=== PATIENT | female | born 1970 | race Caucasian/White ===

== ENCOUNTER → 2017-10-30 | Outpatient (CLI) | payer BC ==
[2017-10-30 16:37] LABS: Basophils % (A) 0 %; Eosinophils % (A) 0 %; HCT 36.5 % (34.0-46.0); HGB 12.7 gm/dL (11.4-16.0); Lymphocytes # (A) 1.6 k/uL (1.0-4.8); Lymphocytes % (A) 33 %; MCH 31.2 pg (25.0-35.0); MCHC 34.7 g/dL (31.0-37.0); MCV 89.8 fL (80.0-100.0); Mean Platelet Volume 7.3; Monocytes # (A) 0.4 k/uL (0-1.0); Monocytes % (A) 7 %; Neutrophils # (A) 2.7 k/uL (1.3-7.7); Neutrophils % (A) 56 %; Platelet Count 195 k/uL (150-450); RBC 4.07 m/uL (3.80-5.40); RDW 12.1 % (11.5-15.5); WBC 4.8 k/uL (3.8-10.6)
[2017-10-30 16:57] LABS: Potassium 3.9 mmol/L (3.5-5.1)
== END | disposition home or self-care (01) ==
LOC: LABPAT 15:45
PROVIDERS: ATTEND Obstetrics & Gynecology
DX: Z01.812 Encounter for preprocedural laboratory examination (principal); N94.6 Dysmenorrhea, unspecified
CPT/HCPCS: 36415; 80051; 82565; 82947; 84520; 85025; 87086

== ENCOUNTER 2017-11-04 06:17 | Day surgery (SDC) | payer BC ==
[2017-10-23 12:46] VITALS: BMI 29.2
[~2017-11-04 06:17] MED LIST: DEXAMETHASONE SOD PHOSPHATE 10 MG/ML 1 ML VIAL IV ONE; MIDAZOLAM 2 MG/2 ML VIAL IV PRN; MORPHINE SULFATE 4MG/4ML SYRG IV PRN; ceFAZolin IN SWFI 2 GM/20 ML SYRINGE IVP ONE
[2017-11-04] MEDS ORDERED: LIDOCAINE 1% 20 ML VIAL (10MG/ML) FOR IV START INTRADERMA ONE (07:01)
[2017-11-04] MEDS: LACTATED RINGERS 1,000 ML IV SCH (07:01)
[2017-11-04] MEDS: ONDANSETRON 4 MG/2 ML VIAL IVP ONE ×2 (07:08→09:41)
[2017-11-04] MEDS ORDERED: SCOPOLAMINE 1.5MG/72HR PATCH TRANSDERM ONE (07:08)
[2017-11-04] MEDS ORDERED: LIDOCAINE 1% INJ 10MG/ML (20 ML MDV) ONE (07:57)
[2017-11-04] MEDS ORDERED: MIDAZOLAM 2 MG/2 ML VIAL ONE (07:57)
[2017-11-04] MEDS ORDERED: PROPOFOL 10 MG/ML 20 ML VIAL IV ONE (07:57)
[2017-11-04] MEDS ORDERED: fentaNYL (PF) 50 MCG/ML 2 ML AMP ONE (07:57)
[2017-11-04] MEDS ORDERED: VASOPRESSIN 20 UNIT/ML 1 ML VIAL SQ ONE (08:15)
[2017-11-04] MEDS ORDERED: LACTATED RINGERS 1,000 ML IV ONE (08:41)
[2017-11-04] MEDS ORDERED: BACITRACIN 500 UNIT/GM OINT 28.4 GM TUBE TOPICAL ONE (09:13)
[2017-11-04] MEDS ORDERED: ONDANSETRON 4 MG/2 ML VIAL IVP PRN ×2 (09:31→10:23)
[2017-11-04] MEDS ORDERED: KETOROLAC 30 MG/ML 1 ML VIAL IVP PRN (09:31)
[2017-11-04] MEDS ORDERED: IBUPROFEN 600 MG TAB PO PRN (09:31)
[2017-11-04] MEDS ORDERED: SIMETHICONE 80 MG CHEWABLE PO PRN (09:31)
[2017-11-04] MEDS ORDERED: diphenhydrAMINE 50 MG/ML 1 ML VIAL IVP PRN (09:31)
[2017-11-04] MEDS ORDERED: METOCLOPRAMIDE 5 MG/ML 2 ML VIAL IVP PRN (09:31)
[2017-11-04] MEDS ORDERED: ZOLPIDEM 5 MG TAB PO PRN (09:31)
[2017-11-04] MEDS ORDERED: Acetaminophen-Codeine 300-30mg TAB PO PRN (09:31)
--- NOTE | 2017-11-04 09:31 | P.OP ---
Date of Procedure: 11/04/17 Preoperative Diagnosis: Severe dysmenorrhea, adenomyosis Postoperative Diagnosis: Fibroid uterus, normal-appearing ovaries bilaterally Procedure(s) Performed: Vaginal hysterectomy Anesthesia: LADIA Surgeon: Nicolasa Lorenzana Senior [employer] Applications Developer #1: Rajiv Tinajero Estimated Blood Loss (ml): 50 IV fluids (ml): 1,000 Urine output (ml): 300 Pathology: other (Cervix and uterus) Condition: stable Disposition: PACU Operative Findings: Normal-appearing ovaries bilaterally Description of Procedure: Patient is brought to the operating suite where a general anesthetic is administered without difficulty per anesthesia staff. Antibiotics are given. The appropriate timeout was performed to assure proper patient and procedural identification. Urine hCG is negative. The cervix, vagina, perineum and periurethral areas are all prepped and draped in the usual sterile fashion. Bladder is drained for approximately 300 mL of clear yellow urine. Weighted speculum was placed into the vagina and the anterior lip of the cervix is grasped with a double-tooth tenaculum. The cervix is injected circumferentially with a dilute Pitressin solution. A [place] blade scalpel is used and the mucosa is incised circumferentially with a V positioning in the back. A sponge is used to sweep the overlying mucosa from the underlying fascial plane. The peritoneum is entered at 6:00 and suture tied with 2-0 Vicryl, the large billed speculum is then placed into the vagina. At all times care is taken to keep the mucosa swept well from the Bladder and ureteral regions. Nelson clamps are used in the uterosacral ligaments are clamped cut and held laterally with a hemostat. Skeletonization is performed and the uterine vasculature is identified, clamped cut and suture ligated. 2 additional pedicles are taken superior to the vessels. The anterior peritoneum was then entered with Metzenbaum scissors. Nelson clamps are used across the final pedicles and the specimen is removed and sent to pathology for evaluation. The pedicles are tied with 0 Vicryl suture, flashed, and retied for excellent hemostasis. A sponge stick is then used and the ovaries are identified, noted to be within normal limits and hemostatically intact. They are therefore left in situ per the patient's wishes. All pedicles are clean and dry. The speculum is changed to the shallow billed speculum and the 2-0 Vicryl suture is brought around in a pursestring fashion to close the peritoneum. The previously held uterosacral cardinal ligaments are brought across to incorporate the opposite ligament and vaginal mucosa. Vagina is then closed with several additional [id number] sutures of 0 Vicryl. Hemostasis is excellent. Lock is placed and bladder is noted to be draining clear urine. All sponge needle and enhancement counts are correct. Vagina is packed with one -inch iodophor gauze with basic tracing. Patient is brought back to recovery room in very good condition with stable vital signs including blood pressure 109 /62, pulse 64.
[2017-11-04] MEDS ORDERED: PROMETHAZINE INJ 25 MG/ML 1 ML VIAL IVPB ONE (09:49)
[2017-11-04] MEDS ORDERED: NALOXONE 0.4 MG/ML 1 ML VIAL IV PRN (10:23)
[2017-11-04 16:43] VITALS: PULSE 68
[2017-11-04 22:50] VITALS: RESP 18
[2017-11-05] MEDS: LACTATED RINGERS 1,000 ML IV SCH (06:07)
--- NOTE | 2017-11-05 06:36 | P.PN ---
Progress Note - Text Progress Note Date: 11/05/17 46 year-old female status post vaginal hysterectomy post op day #1. Patient received spinal Duramorph. Patient was seen this morning laying in bed, comfortable, no complaints from overnight, no headache, no itching, no nausea or vomiting. Adequate pain control. VAS score of 3/10. Assessment and plan:patient will be kept on the floor for a couple of days before she gets discharged home.
--- NOTE | 2017-11-05 07:50 | P.DS ---
Providers Date of admission: 11/04/17 Expected date of discharge: 11/05/17 Attending physician: Nicolasa Lorenzana Primary care physician: Stated None Hospital Course: This is a 46-year-old white female who presented with a complaint of cyclic severe menstrual cramping. She is status post NovaSure ablation, ultrasound suggested the presence of adenomyosis. After thorough consultation, patient elected to proceed with vaginal hysterectomy. Please see admitting history and physical for details. Patient was admitted and underwent vaginal hysterectomy under my care yesterday. She did well intraoperatively, ovaries appeared normal to inspection and therefore were left in situ per her wishes. Lock was draining clear urine, vagina was packed, please see dictated operative note for details. This morning the vaginal packing and Lock catheter both been removed. Patient is voiding, ambulating, passing flatus without difficulty. Vital signs are stable and she is afebrile. There is only scant vaginal drainage. Pain is well controlled. She is tolerating regular food. Patient is being discharged home today in very good condition. She will follow- up in the office with me in 2 weeks. I have reminded her no intercourse, tampons or douching. She will use [id number] Advil or Motrin products as needed for pain. I have asked her to call me with any fevers shakes or chills, foul smelling or bloody vaginal drainage, with any pain not alleviated by over- the-counter medications, with any difficulties or concerns. No heavy lifting, no driving for 2 weeks. Patient Condition at Discharge: Good Plan - Discharge Summary Discharge Rx Participant: Yes New Discharge Prescriptions: No Action Cholecalciferol [Vitamin D3] 5,000 unit PO DAILY Thyroid,Pork [Simpson Thyroid] 60 mg PO 1800 Thyroid,Pork [Simpson Thyroid] 90 mg PO QAM Vitamin B Complex 1 each PO DAILY Biotin 5 mg PO DAILY Discharge Medication List Biotin 5 mg PO DAILY 10/23/17 [History] Cholecalciferol [Vitamin D3] 5,000 unit PO DAILY 10/23/17 [History] Thyroid,Pork [Simpson Thyroid] 60 mg PO 1800 10/23/17 [History] Thyroid,Pork [Simpson Thyroid] 90 mg PO QAM 10/23/17 [History] Vitamin B Complex 1 each PO DAILY 10/23/17 [History] Follow up Appointment(s)/Referral(s): Nicolasa Lorenzana MD [STAFF PHYSICIAN] - 2 Weeks Discharge Disposition: HOME SELF-CARE
[2017-11-05 08:23] VITALS: BP 117/88; TEMP 97.8
== END 2017-11-05 10:20 | disposition home or self-care (01) ==
LOC: OR 06:17 → 4FBP 09:20 → OR 11-05 10:20
PROVIDERS: ATTEND Obstetrics & Gynecology
DX: D25.9 Leiomyoma of uterus, unspecified (principal); N80.0 Endometriosis of uterus; N73.6 Female pelvic peritoneal adhesions (postinfective); E53.8 Deficiency of other specified B group vitamins; E55.9 Vitamin D deficiency, unspecified; E03.9 Hypothyroidism, unspecified; Z79.890 Hormone replacement therapy; Z98.51 Tubal ligation status
CPT/HCPCS: 81025; 86900; 86901; 86850; 88307; 58260; J2250; J1200; J1100; J2550; J2405; J2001; J3010; J2704; J0690

== ENCOUNTER → 2024-11-10 | Outpatient (CLI) | payer BC ==
--- NOTE | 2024-11-10 14:17 | MM ---
Reason for Exam: Screening (asymptomatic). Last mammogram was performed 11 year(s) and 4 month(s) ago. Patient History: Menarche at age 13. First Full-Term at age 23. Hysterectomy at age 48. Maternal grandmother had breast cancer, age 80. Risk Values: Shadia 5 year model risk: 0.9%. NCI Lifetime model risk: 7.8%. Prior Study Comparison: 06/28/2013 Bilateral Screening Mammogram, [facility]. Tissue Density: The breasts are heterogeneously dense, which may obscure small masses. Findings: Analyzed By CAD. There is no suspicious group of microcalcifications or new suspicious mass in either breast. Overall Assessment: Negative, BI-RAD 1 Management: Screening Mammogram of both breasts in 1 year. . Patient should continue monthly self-breast exams. A clinical breast exam by your physician is recommended on an annual basis. This exam should not preclude additional follow-up of suspicious palpable abnormalities. Note on Shadia scores and lifetime risk: 1. A Shadia score greater than 3% is considered moderate risk. If this is the case, consider specialist referral to assess eligibility for a risk reducing agent. 2. If overall lifetime risk for the development of breast cancer is 20% or higher, the patient may qualify for future screening with alternating mammogram and breast MRI. [facility], , 11/10/2024 2:14 PM. Electronically signed and approved by: Gwyn Key M.D. [facility]
== END | disposition home or self-care (01) ==
LOC: RADMAMWWP 13:52
PROVIDERS: ATTEND Family Medicine
DX: Z12.31 Encounter for screening mammogram for malignant neoplasm of breast (principal); R92.333 Mammographic heterogeneous density, bilateral breasts; Z80.3 Family history of malignant neoplasm of breast
CPT/HCPCS: 77067